=== PATIENT | female | born 1975 | race African-American/Black ===

== ENCOUNTER 2019-07-16 12:43 | Emergency (ER) | payer SELFPAY ==
[~2019-07-16] VITALS: Ht 170.2 cm; Wt 85.0 kg
[2019-07-16 12:53] VITALS: BP 136/78
== END 2019-07-16 14:26 | disposition left against medical advice (07) ==
LOC: ER 12:47
DX: F10.10 Alcohol abuse, uncomplicated (principal); Z53.21 Procedure and treatment not carried out due to patient leaving prior to being seen by health care provider; Y90.9 Presence of alcohol in blood, level not specified

== ENCOUNTER 2021-12-06 15:22 | Emergency (ER) | payer OTHER ==
[~2021-12-06] VITALS: Ht 162.6 cm; Wt 74.0 kg
[2021-12-06] MEDS ORDERED: CLINDAMYCIN HCL 150MG CAPSULE PO STA (19:49)
[2021-12-06] MEDS ORDERED: HYDR-4001 MT (19:59)
[2021-12-06] MEDS ORDERED: IBUP-2028 MT (19:59)
[2021-12-06] MEDS ORDERED: CLIN-194 MT (19:59)
[2021-12-06] MEDS ORDERED: HYDROCODONE/ACETAMINOPHEN 5/325MG TABLET PO ONE (20:00)
[2021-12-06 20:21] VITALS: BP 167/113
== END 2021-12-06 21:15 | disposition home or self-care (01) ==
LOC: ER 15:22
DX: K04.7 Periapical abscess without sinus (principal); I10 Essential (primary) hypertension; M19.90 Unspecified osteoarthritis, unspecified site; Z98.890 Other specified postprocedural states; Z88.0 Allergy status to penicillin
CPT/HCPCS: 99283

== ENCOUNTER 2022-02-19 18:44 | Emergency (ER) | payer OTHER ==
[~2022-02-19] VITALS: Ht 160 cm; Wt 73.0 kg
[~2022-02-19 18:44] MED LIST: CLIN-194 MT; HYDR-4001 MT; IBUP-2028 MT
[2022-02-19 18:56] VITALS: BP 158/96
== END 2022-02-19 23:30 | disposition left against medical advice (07) ==
LOC: ER 18:44
DX: Z53.21 Procedure and treatment not carried out due to patient leaving prior to being seen by health care provider (principal); I10 Essential (primary) hypertension; M19.90 Unspecified osteoarthritis, unspecified site

== ENCOUNTER 2024-05-13 11:35 | Emergency (ER) | payer MEDICAID, OTHER ==
[~2024-05-13] VITALS: Ht 160 cm; Wt 84.8 kg
[~2024-05-13 11:35] MED LIST changes: +AMLO10TA80 MT; +ASPI-1406 MT; -CLIN-194 MT; -HYDR-4001 MT; -IBUP-2028 MT; +LOSA100T33 MT
[2024-05-13 11:54] VITALS: BP 128/75; PULSE 78; RESP 16; TEMP 98.4; O2SAT 100
[2024-05-13 13:26] LABS: BASOPHILS % 0.9 % (0.0-2.0); EOSINOPHILS % 3.7 % (0.0-5.0); HEMATOCRIT. 42.6 % (36.0-48.0); HEMOGLOBIN. 14.1 g/dL (12.0-16.0); LYMPHOCYTES % 28.8 % (20.0-50.0); MEAN CORPUSCULAR HEMOGLOBIN 29.1 pg (28.0-32.0); MEAN CORPUSCULAR HGB CONC 33.1 g/dL (31.0-37.0); MEAN CORPUSCULAR VOLUME 87.9 fL (81.0-99.0); MEAN PLATELET VOLUME 7.6 fl (7.4-10.4); MONOCYTES % 7.2 % (2.0-8.0); NEUTROPHILS % 59.4 % (40.0-76.0); PLATELET 317 x1000/uL (130-400); RED BLOOD CELL COUNT 4.85 mill/uL (4.2-5.4); RED CELL DISTRIBUTION WIDTH 13.9 % (11.6-14.6); WHITE BLOOD COUNT 9.1 x1000/uL (4.5-11.0)
[2024-05-13 13:35] LABS: CHLORIDE 106 mEq/L (98-107); SODIUM 137 mEq/L (136-145)
[2024-05-13 13:36] LABS: CALCIUM 9.8 mg/dL (8.7-10.4); CARBON DIOXIDE 26 mEq/L (21-32)
[2024-05-13 13:41] LABS: CREATININE 0.7 mg/dL (0.6-1.0); GLUCOSE 90 mg/dL (70-105); UREA NITROGEN BLOOD 11 mg/dL (9-23)
[2024-05-13 13:43] LABS: TROPONIN I HIGH SENSITIVITY < 4 ng/L (3.0-34)
[2024-05-13] MEDS ORDERED: ASPI-1406 MT (14:05)
[2024-05-13] MEDS ORDERED: LOSA100T33 MT (14:05)
[2024-05-13] MEDS ORDERED: AMLO10TA80 MT (14:05)
== END 2024-05-13 15:00 | disposition home or self-care (01) ==
LOC: ER 14:49
DX: Z76.0 Encounter for issue of repeat prescription (principal); F17.210 Nicotine dependence, cigarettes, uncomplicated; F14.90 Cocaine use, unspecified, uncomplicated; F12.90 Cannabis use, unspecified, uncomplicated; Z90.49 Acquired absence of other specified parts of digestive tract; Z79.899 Other long term (current) drug therapy; Z88.0 Allergy status to penicillin
CPT/HCPCS: 36415; 71045; 80048; 84484; 85025; 93005; 99285